=== PATIENT | male | born 1970 | race African-American/Black ===

== ENCOUNTER 2018-03-12 11:42 | Emergency (ER) | payer OTHER ==
[~2018-03-12] VITALS: Ht 193 cm; Wt 88.9 kg
[2018-03-12] MEDS ORDERED: SODIUM CHLORIDE 0.9% 500 ML IV ONE (11:53)
[2018-03-12] MEDS ORDERED: KETOROLAC TROMETH 30 MG/ML 1ML VIAL IV ONE (12:00)
[2018-03-12 13:42] LABS: Basophils # (auto) 0.2 uL; Eosinophils # (auto) 0.2 uL; White Blood Cell 7.8 10^3/uL (4.4-10.8)
[2018-03-12 13:44] LABS: Basophils % (auto) 2.9 % (0.0-2.0); Eosinophils % (auto) 2.1 % (0.0-7.0); Hematocrit 38.1 % (41.0-53.0); Hemoglobin 12.3 g/dL (13.5-17.5); Lymphocytes # (auto) 1.6 uL; Lymphocytes % (auto) 20.7 % (10.0-50.0); Mean Corpuscular Hgb Conc. 32.4 g/dL (32.0-36.0); Mean Corpuscular Volume 81.3 fL (80.0-100.0); Monocytes # (auto) 0.9 uL; Monocytes % (auto) 12.1 % (0.0-12.0); Neutrophils # (auto) 4.9 uL; Neutrophils % (auto) 62.2 % (37.0-80.0); Nucleated Red Blood Cells % 0.1 %; Platelet Count (auto) 249 10^3/uL (140-450); Red Blood Cells 4.69 10^6/uL (4.5-5.90); Red Cell Distribution Width 20.9 % (11.8-14.3)
[2018-03-12 13:51] LABS: Mean Corpuscular Hemoglobin 26.3 pg (28.0-32.0)
[2018-03-12 14:03] LABS: Albumin 3.1 g/dL (3.4-5.0); Calcium 8.4 mg/dL (8.5-10.1); Potassium 3.8 mmol/L (3.5-5.1)
[2018-03-12 14:06] LABS: BUN/Creatinine Ratio 12.5
[2018-03-12 14:09] LABS: Bilirubin, Total 0.6 mg/dL (0.2-1.0); Total Protein 7.5 g/dL (6.4-8.2)
[2018-03-12 14:56] VITALS: BP 140/91
== END 2018-03-12 15:00 | disposition home or self-care (01) ==
LOC: ER 11:42
DX: M54.5 Low back pain (principal); G89.4 Chronic pain syndrome; I10 Essential (primary) hypertension; F17.210 Nicotine dependence, cigarettes, uncomplicated; Z86.19 Personal history of other infectious and parasitic diseases; Z86.73 Personal history of transient ischemic attack (TIA), and cerebral infarction without residual deficits
CPT/HCPCS: 36415; 72131; 80053; 85025; 94761; 96374; 99285; J1885; J7030